=== PATIENT | male | born 1945 | race Caucasian/White ===

== ENCOUNTER 2016-08-18 20:46 | Emergency (ER) | payer MEDICARE, OTHER ==
[2016-08-18] MEDS ORDERED: HYDROCHLOROTHIA1 T15 PO (21:05)
[2016-08-18] MEDS ORDERED: CEPHALEXIN500 M1 PO (23:00)
[2016-08-18] MEDS ORDERED: NORCO 325 MG-51 TA1 PO (23:13)
[2016-08-18] MEDS ORDERED: EC-NAPROSYN500 MG PO (23:14)
[2016-08-18 23:28] VITALS: BP 114/72
== END 2016-08-18 23:20 | disposition home or self-care (01) ==
LOC: ED 20:46
DX: M25.561 Pain in right knee (principal); M00.9 Pyogenic arthritis, unspecified; M10.9 Gout, unspecified

== ENCOUNTER → 2017-09-28 | Outpatient (CLI) | payer MEDICARE, OTHER ==
[~2017-09-28] VITALS: Ht 182.9 cm; Wt 104.5 kg
[~2017-09-28] MED LIST: ADULT ASPIRIN81 MG PO; CENTRUM ADULTS1 EACH PO; CEPHALEXIN500 M1 PO; CIALIS20 MG PO; EC-NAPROSYN500 MG PO; HYDROCHLOROTHIA1 T15 PO; MELATIN 3 MG-11 TAB PO; NEUTROGENA T/G132 M1 TP; NIZORAL SHAMPO120 M1 TP; NORCO 325 MG-51 TA1 PO; TRIAMCINOLONE A15 GM TP
[2017-09-28 12:05] VITALS: BP 121/91
== END ==
LOC: AMSURD 12:04
DX: Z00.00 Encounter for general adult medical examination without abnormal findings (principal); Z12.5 Encounter for screening for malignant neoplasm of prostate; R39.15 Urgency of urination; I10 Essential (primary) hypertension; E78.5 Hyperlipidemia, unspecified; R22.9 Localized swelling, mass and lump, unspecified; M50.30 Other cervical disc degeneration, unspecified cervical region

== ENCOUNTER 2018-03-25 18:50 | Emergency (ER) | payer MEDICARE, OTHER ==
[2018-03-25 19:20] LABS: EOS # 0.2 (0.04-0.40); EOS % 3.3 % (0.0-4.0); HEMATOCRIT 40.1 % (42.0-52.0); HEMOGLOBIN 13.9 g/dL (13.5-18.0); LYMPH# 2.5 (1.50-4.00); MEAN CELL VOLUME 89 fl (78-100); MEAN CORPUSCULAR HEMOGLOBIN 31 pg (27-31); MEAN CORPUSCULAR HGB CONC 35 g/dL (33-37); MEAN PLATELET VOLUME 9.6 fl (7.4-10.4); MONO # 0.7 (0.20-0.80); NEU # 3.2 (1.40-6.50); PLATELET COUNT 189 K/mm3 (130-400); RED BLOOD COUNT 4.51 M/mm3 (4.20-5.60); RED CELL DISTRIBUTION WIDTH 12.6 % (11.5-14.5); WHITE BLOOD COUNT 6.7 K/mm3 (4.8-10.8)
[2018-03-25 19:30] LABS: ALBUMIN 3.9 g/dL (3.5-5.0); CALCIUM 8.8 mg/dL (8.4-10.2); POTASSIUM 3.7 mmol/L (3.6-5.0); TOTAL BILIRUBIN 0.5 mg/dL (0.2-1.3); TOTAL PROTEIN 6.7 g/dL (6.3-8.2)
[2018-03-25 19:48] LABS: PARTIAL THROMBOPLASTIN TIME 23.3 SECONDS (21.0-32.0); PROTHROMBIN TIME 9.6 SECONDS (9.0-12.0)
[2018-03-25 20:22] VITALS: BP 134/77
== END 2018-03-25 20:22 | disposition short-term general hospital (02) ==
LOC: ED 18:50
PROVIDERS: Family Medicine
DX: I21.19 ST elevation (STEMI) myocardial infarction involving other coronary artery of inferior wall (principal); I10 Essential (primary) hypertension; Z82.49 Family history of ischemic heart disease and other diseases of the circulatory system
CPT/HCPCS: J1644; J2270; J2405

== ENCOUNTER 2018-04-04 08:27 | Outpatient (RCR) | payer MEDICARE, OTHER | END 2018-07-03 | disposition home or self-care (01) | LOC: CARDREHAB 08:27 | DX: Z48.812 Encounter for surgical aftercare following surgery on the circulatory system (principal); Z95.5 Presence of coronary angioplasty implant and graft; I21.19 ST elevation (STEMI) myocardial infarction involving other coronary artery of inferior wall ==

== ENCOUNTER → 2018-05-04 | Outpatient (CLI) | payer MEDICARE, OTHER ==
[~2018-05-04] VITALS: Ht 182.9 cm; Wt 104.5 kg
[~2018-05-04] MED LIST changes: +ALDACTONE 25MG25 MG PO; +ASCORBIC ACID PO; +ATORVASTATIN CA80 MG PO; +CLOPIDOGREL75 M2 PO; +GOOD NEIGHBOR200 M1 PO; +MULTIVITAMIN1 SGL PO; +NIACIN500 M6 PO; +OMEGA 3 1,0001 EACH PO
[2018-05-04 18:14] VITALS: BP 144/85
[2018-05-04 18:48] LABS: HEMATOCRIT 43.3 % (42.0-52.0); HEMOGLOBIN 14.9 g/dL (13.5-18.0); MEAN PLATELET VOLUME 9.7 fl (7.4-10.4); RED BLOOD COUNT 4.93 M/mm3 (4.20-5.60); RED CELL DISTRIBUTION WIDTH 12.7 % (11.5-14.5); WHITE BLOOD COUNT 8.8 K/mm3 (4.8-10.8)
[2018-05-04 18:56] LABS: ALBUMIN 4.3 g/dL (3.5-5.0); CALCIUM 8.6 mg/dL (8.4-10.2); POTASSIUM 4.1 mmol/L (3.6-5.0); TOTAL PROTEIN 7.2 g/dL (6.3-8.2)
== END ==
LOC: AMSURD 17:56
PROVIDERS: Nurse Practitioner
DX: R10.9 Unspecified abdominal pain (principal); R11.0 Nausea

== ENCOUNTER → 2018-05-10 | Outpatient (CLI) | payer MEDICARE, OTHER ==
[2018-05-04 18:14] VITALS: BP 144/85
== END ==
LOC: LAB 06:48
DX: I25.10 Atherosclerotic heart disease of native coronary artery without angina pectoris (principal); E78.5 Hyperlipidemia, unspecified

== ENCOUNTER → 2018-05-17 | Outpatient (CLI) | payer MEDICARE, OTHER ==
[2018-05-04 18:14] VITALS: BP 144/85
== END ==
LOC: RAD 12:24
DX: M51.36 Other intervertebral disc degeneration, lumbar region (principal); R41.3 Other amnesia; Z91.81 History of falling

== ENCOUNTER 2018-07-04 08:00 | Outpatient (RCR) | payer MEDICARE, OTHER ==
[2018-05-04 18:14] VITALS: BP 144/85
== END 2018-07-09 14:42 ==
LOC: CARDREHAB 08:00
DX: I25.2 Old myocardial infarction (principal); Z98.61 Coronary angioplasty status

== ENCOUNTER 2018-07-09 09:30 | Outpatient (RCR) | payer MEDICARE, OTHER ==
[2018-05-04 18:14] VITALS: BP 144/85
== END 2018-07-09 14:41 | disposition still patient (30) ==
LOC: PT 09:30
DX: M79.18 Myalgia, other site (principal)
CPT/HCPCS: G8978-GP; G8979-GP

== ENCOUNTER → 2018-12-01 | Outpatient (CLI) | payer MEDICARE, OTHER ==
[2018-05-04 18:14] VITALS: BP 144/85
== END ==
LOC: RAD 09:46
DX: M79.89 Other specified soft tissue disorders (principal)

== ENCOUNTER → 2019-09-19 | Outpatient (CLI) | payer MEDICARE, OTHER ==
[2018-05-04 18:14] VITALS: BP 144/85
[2019-09-19 16:21] LABS: HEMATOCRIT 42.2 % (42.0-52.0); HEMOGLOBIN 14.5 g/dL (13.5-18.0); MEAN PLATELET VOLUME 9.7 fl (7.4-10.4); RED BLOOD COUNT 4.76 M/mm3 (4.20-5.60); RED CELL DISTRIBUTION WIDTH 12.7 % (11.5-14.5); WHITE BLOOD COUNT 6.3 K/mm3 (4.8-10.8)
[2019-09-19 16:25] LABS: POTASSIUM 4.7 mmol/L (3.5-5.1)
[2019-09-19 16:26] LABS: ALBUMIN 4.3 g/dL (3.4-4.8)
[2019-09-19 16:27] LABS: CALCIUM 9.4 mg/dL (8.3-10.5)
[2019-09-19 16:30] LABS: TOTAL BILIRUBIN 1.3 mg/dL (0.2-1.2)
== END ==
LOC: RAD 14:37
PROVIDERS: Family Medicine
DX: Z12.5 Encounter for screening for malignant neoplasm of prostate (principal); M16.0 Bilateral primary osteoarthritis of hip; I10 Essential (primary) hypertension; E78.5 Hyperlipidemia, unspecified; I25.10 Atherosclerotic heart disease of native coronary artery without angina pectoris; R73.02 Impaired glucose tolerance (oral); Z77.011 Contact with and (suspected) exposure to lead

== ENCOUNTER 2019-11-02 02:48 | Emergency (ER) | payer MEDICARE, OTHER ==
[2019-11-02] MEDS ORDERED: LISINOPRIL20 MG PO (03:11)
[2019-11-02 04:02] LABS: EOS # 0.2 (0.04-0.40); EOS % 2.1 % (0.0-4.0); HEMATOCRIT 41.7 % (42.0-52.0); HEMOGLOBIN 13.9 g/dL (13.5-18.0); LYMPH# 1.3 (1.50-4.00); MEAN CELL VOLUME 89 fl (78-100); MEAN CORPUSCULAR HEMOGLOBIN 30 pg (27-31); MEAN CORPUSCULAR HGB CONC 33 g/dL (33-37); MEAN PLATELET VOLUME 9.4 fl (7.4-10.4); MONO # 0.8 (0.20-0.80); NEU # 5.4 (1.40-6.50); PLATELET COUNT 186 K/mm3 (130-400); RED CELL DISTRIBUTION WIDTH 12.6 % (11.5-14.5); WHITE BLOOD COUNT 7.7 K/mm3 (4.8-10.8)
[2019-11-02 05:01] LABS: ERYTHROCYTE SEDIMENTATION RATE 22 mm/hr (0-20)
[2019-11-02] MEDS ORDERED: NORCO 325 MG-51 TA1 PO (05:27)
[2019-11-02] MEDS ORDERED: PREDNISONE20 M1 PO (05:27)
[2019-11-02 05:43] VITALS: BP 149/90
== END 2019-11-02 05:49 | disposition home or self-care (01) ==
LOC: ED 02:48
PROVIDERS: Family Medicine
DX: M19.072 Primary osteoarthritis, left ankle and foot (principal); I25.10 Atherosclerotic heart disease of native coronary artery without angina pectoris; E78.5 Hyperlipidemia, unspecified; I25.2 Old myocardial infarction; Z79.02 Long term (current) use of antithrombotics/antiplatelets; Z79.82 Long term (current) use of aspirin; Z95.5 Presence of coronary angioplasty implant and graft

== ENCOUNTER → 2020-04-17 | Outpatient (CLI) | payer MEDICARE, OTHER ==
[~2020-04-17] MED LIST changes: +LISINOPRIL20 MG PO; +PREDNISONE20 M1 PO
== END ==
LOC: LAB 07:38
DX: R05 Cough (principal); R51.9 Headache, unspecified; R09.81 Nasal congestion; R09.89 Other specified symptoms and signs involving the circulatory and respiratory systems; Z20.828 Contact with and (suspected) exposure to other viral communicable diseases

== ENCOUNTER → 2020-04-23 | Outpatient (CLI) | payer MEDICARE, OTHER ==
[2020-04-23 09:40] LABS: ALBUMIN 4.2 g/dL (3.4-4.8); POTASSIUM 4.8 mmol/L (3.5-5.1)
[2020-04-23 09:41] LABS: CALCIUM 9.2 mg/dL (8.3-10.5)
[2020-04-23 09:43] LABS: TOTAL PROTEIN 7.2 g/dL (6.2-8.1)
[2020-04-23 09:48] LABS: DIRECT BILIRUBIN 0.4 mg/dL (0.0-0.5)
== END ==
LOC: LAB 08:07
PROVIDERS: Family Medicine
DX: I25.10 Atherosclerotic heart disease of native coronary artery without angina pectoris (principal); R73.09 Other abnormal glucose

== ENCOUNTER → 2020-04-24 | Outpatient (CLI) | payer MEDICARE, OTHER | LOC: LAB 07:56 | DX: R73.09 Other abnormal glucose (principal) ==

== ENCOUNTER → 2020-11-19 | Outpatient (CLI) | payer MEDICARE, OTHER | LOC: LAB 07:04 | DX: E11.9 Type 2 diabetes mellitus without complications (principal) ==

== ENCOUNTER → 2021-06-11 | Outpatient (CLI) | payer MEDICARE, OTHER ==
[2021-06-11 16:14] LABS: ALBUMIN 4.2 g/dL (3.4-4.8); POTASSIUM 4.3 mmol/L (3.5-5.1)
[2021-06-11 16:15] LABS: CALCIUM 9.3 mg/dL (8.3-10.5)
[2021-06-11 16:17] LABS: TOTAL PROTEIN 6.9 g/dL (6.2-8.1)
[2021-06-11 16:18] LABS: TOTAL BILIRUBIN 1.1 mg/dL (0.2-1.2)
== END ==
LOC: LAB 15:36
PROVIDERS: Family Medicine
DX: Z12.5 Encounter for screening for malignant neoplasm of prostate (principal); I10 Essential (primary) hypertension; E11.9 Type 2 diabetes mellitus without complications; I73.9 Peripheral vascular disease, unspecified; I25.10 Atherosclerotic heart disease of native coronary artery without angina pectoris

== ENCOUNTER → 2021-08-02 | Day surgery (SDC) | payer MEDICARE, OTHER | END | disposition home or self-care (01) | LOC: MSO 07:26 | DX: Z12.11 Encounter for screening for malignant neoplasm of colon (principal); D12.0 Benign neoplasm of cecum; I25.10 Atherosclerotic heart disease of native coronary artery without angina pectoris; I10 Essential (primary) hypertension; Z95.5 Presence of coronary angioplasty implant and graft | CPT/HCPCS: 00811; J2704; J7120 ==

== ENCOUNTER → 2021-09-04 | Outpatient (CLI) | payer MEDICARE, OTHER | LOC: LAB 07:05 | DX: Z20.822 Contact with and (suspected) exposure to COVID-19 (principal) ==

== ENCOUNTER → 2023-04-04 | Outpatient (CLI) | payer MEDICARE, OTHER | LOC: AMSURD 11:18 | DX: I21.9 Acute myocardial infarction, unspecified (principal); I45.4 Nonspecific intraventricular block; I25.10 Atherosclerotic heart disease of native coronary artery without angina pectoris ==

== ENCOUNTER → 2023-12-15 | Outpatient (CLI) | payer MEDICARE, OTHER ==
[2023-12-15 10:01] LABS: CALCIUM 9.4 mg/dL (8.3-10.5)
[2023-12-15 23:18] LABS: CREATININE OTHER SOURCE 106 mg/dL (47-110)
== END ==
LOC: LAB 09:33
PROVIDERS: Family Medicine
DX: E11.9 Type 2 diabetes mellitus without complications (principal); E78.5 Hyperlipidemia, unspecified

== ENCOUNTER → 2024-06-14 | Outpatient (CLI) | payer MEDICARE, OTHER ==
[2024-06-14 10:27] LABS: CALCIUM 9.5 mg/dL (8.3-10.5)
== END ==
LOC: LAB 10:01
PROVIDERS: Family Medicine
DX: E11.9 Type 2 diabetes mellitus without complications (principal)